=== PATIENT | male | born 1990 | race Caucasian/White ===

== ENCOUNTER 2016-06-22 18:06 | Emergency (ER) | payer OTHER ==
[~2016-06-22] VITALS: Ht 177.8 cm; Wt 68.0 kg
[~2016-06-22 18:06] MED LIST: CIMZ200K SC
[2016-06-22 18:10] VITALS: BP 129/77; PULSE 75; RESP 17; TEMP 98.3; O2SAT 95
--- NOTE | 2016-06-22 18:52 | PD ---
HPI Chief Complaint: Complaint Time Seen by Provider: 18:40 Travel History International Travel<30 days: No Contact w/Intl Traveler<30days: No Traveled to known affect area: No History of Present Illness HPI 26-year-old male with history of Crohn's disease presents for evaluation of right testicular pain. Symptoms started 3 weeks ago. Initially the pain was a dull aching pain which is constant. The pain is gradually progressing which prompted evaluation. There are no alleviating factors. Denies any testicular trauma. Denies any dysuria, urethral discharge, vomiting, fevers or chills. He is sexually active with one long-term partner, new sexual contacts. He has never had this problem before. No other complaints. PFSH Past Medical History Gastrointestinal Disorders: Yes (Crohns disease) Past Surgical History Tonsillectomy: Yes Social History Alcohol Use: Yes (OCCASSIONAL) Tobacco Use: No Substance Use: Yes Allergies-Medications (Allergen,Severity, Reaction): Coded Allergies: No Known Allergies (Unverified , 03/07/16) Reported Meds & Prescriptions Reported Meds & Active Scripts Active Cipro (Ciprofloxacin HCl) 500 Mg Tab 500 Mg PO BID 10 Days Reported Cimzia (Certolizumab Pegol) 200 Mg/Ml Kit 200 Mg SC BI-WEEKLY Review of Systems Except as stated in HPI: all other systems reviewed are Neg Physical Exam Narrative GENERAL: Well-developed well-nourished male in no acute distress SKIN: Warm and dry. HEAD: Atraumatic. Normocephalic. EYES: Pupils equal and round. No scleral icterus. No injection or drainage. CARDIOVASCULAR: Regular rate and rhythm. No murmur appreciated. RESPIRATORY: No accessory muscle use. Clear to auscultation. Breath sounds equal bilaterally. GASTROINTESTINAL: Abdomen soft, non-tender, nondistended. Hepatic and splenic margins not palpable. : Bilaterally the testicles are descended. There is mild tenderness to palpation to the right testicle. No tenderness to palpation to left testicle. No scrotal wall edema, erythema. There is no urethral discharge. No palpable masses. No palpable inguinal hernias. MUSCULOSKELETAL: No obvious deformities. NEUROLOGICAL: Awake and alert. No obvious cranial nerve deficits. Motor grossly within normal limits. Normal speech. PSYCHIATRIC: Appropriate mood and affect; insight and judgment normal. Data Data Last Documented VS Vital Signs Date Time Temp Pulse Resp B/P Pulse Ox O2 Delivery O2 Flow Rate FiO2 06/22/16 18:10 98.3 75 17 129/77 95 Orders Us Testicles W Doppler (06/22/16 18:40) Urinalysis - C+S If Indicated (06/22/16 18:47) Labs Laboratory Tests Test 06/22/16 19:00 Urine Color YELLOW Urine Turbidity CLEAR Urine pH 7.0 Urine Specific [place] 1.013 Urine Protein NEG mg/dL Urine Glucose (UA) NEG mg/dL Urine Ketones NEG mg/dL Urine Occult Blood NEG Urine Nitrite NEG Urine Bilirubin NEG Urine Urobilinogen LESS THAN 2.0 MG/DL Urine Leukocyte Esterase NEG Urine RBC 1 /hpf Urine WBC LESS THAN 1 /hpf Microscopic Urinalysis Comment CULT NOT INDICATED MDM Medical Decision Making Medical Screen Exam Complete: Yes Emergency Medical Condition: Yes Medical Record Reviewed: Yes Differential Diagnosis Epididymitis, orchitis, testicular torsion, hydrocele, varicocele, cystocele, spermatocele Narrative Course 26-year-old male with 3 weeks of right testicular pain. Examination is reassuring. Testicular ultrasound, urinalysis have been ordered. Urinalysis is normal. At the end of my shift the patient was signed out to oncoming provider pending testicular ultrasound results, likely disposition home if negative for torsion or significant mass. Likely outpatient follow-up with primary care physician. Scripts Ciprofloxacin (Cipro)500 Mg Mal115 Mg PO BID 10 Days Ref 0 Prov:Nigel Winkler MD 06/22/16 Eulogio Roach Jun 22, 2016 18:52 Eulogio Roach Jun 22, 2016 18:52
[2016-06-22 19:20] LABS: BLOOD, URINE NEG (NEG); GLUCOSE,URINE NEG (NEG); KETONE, URINE NEG (NEG); NITRITE,URINE NEG (NEG); URINE COLOR YELLOW (YELLW/STRAW)
[2016-06-22 19:23] LABS: COMMENT (UR) CULT NOT INDICATED; CULTURE IF INDICATED CULT NOT INDICATED
[2016-06-22] MEDS ORDERED: CIPR-9 PO ×2 (20:37→21:16)
--- NOTE | 2016-06-22 21:12 | RADRPT ---
EXAM DATE/TIME: 06/22/2016 19:46 [facility] COMPARISON: No previous studies available for comparison. INDICATIONS : Testicle pain. MEDICAL HISTORY : Crohn's disease. SURGICAL HISTORY : Tonsillectomy. ENCOUNTER: Initial ACUITY: 1 week PAIN SCORE: 7/10 LOCATION: Bilateral testicles. MEASUREMENTS: RIGHT TESTICLE: 5.0 x 3.4 x 2.6 cm FLOW: Yes LEFT TESTICLE: 5.2 x 3.5 x 2.7 cm FINDINGS: Small hydroceles present bilaterally. Positive testicular blood flow without evidence for torsion. No discrete testicular masses. No abnormal findings in the upper epididymis bilaterally. No varicocele. CONCLUSION: 1. Small bilateral hydroceles. Exam otherwise unremarkable. Pedro Murillo MD on June 22, 2016 at 21:09 Board Certified Radiologist. This report was verified electronically.
--- NOTE | 2016-06-22 21:16 | PD ---
Physical Exam Date Seen by Provider: Jun 22, 2016 Time Seen by Provider: 21:13 Narrative 26-year-old male that presents to the ED from 8 to the testicles. This referred to the previous provider. I was signed out this patient to me pending report of the ultrasound. Data Data Last Documented VS Vital Signs Date Time Temp Pulse Resp B/P Pulse Ox O2 Delivery O2 Flow Rate FiO2 06/22/16 18:10 98.3 75 17 129/77 95 Orders Us Testicles W Doppler (06/22/16 18:40) Urinalysis - C+S If Indicated (06/22/16 18:47) Labs Laboratory Tests Test 06/22/16 19:00 Urine Color YELLOW Urine Turbidity CLEAR Urine pH 7.0 Urine Specific [place] 1.013 Urine Protein NEG mg/dL Urine Glucose (UA) NEG mg/dL Urine Ketones NEG mg/dL Urine Occult Blood NEG Urine Nitrite NEG Urine Bilirubin NEG Urine Urobilinogen LESS THAN 2.0 MG/DL Urine Leukocyte Esterase NEG Urine RBC 1 /hpf Urine WBC LESS THAN 1 /hpf Microscopic Urinalysis Comment CULT NOT INDICATED MDM Medical Record Reviewed: Yes Supervised Visit with LEEANNE: No Interpretation(s) Ultrasound of the testicles show bilateral small hydroceles but no sign of other deformity or mass. Differential Diagnosis Mass versus cancer versus infection versus normal exam Narrative Course 26-year-old male that presents to the ED for evaluation of testicular pain. Patient was properly examined by the previous provider. Please refer to his note. Basically patient was signed out to me pending ultrasound results. Ultrasound result came back and was negative for acute disease other than for hydrocele. There is provider wanted patient to be sent home with Cipro to cover for acute infection. Patient was told results. Patient was reassured. Recommendation is for follow-up with urologist. See ED for any worsening symptoms. Diagnosis Primary Impression: Hydrocele in adult Referrals: Raul Das MD Patient Instructions: General Instructions Additional Instruction: Take medication as prescribed. Follow with PCP. Follow with urologist. See ED for any worsening symptoms.-year-old percent was negative for acute mass other than for hydrocele which is a benign collection of fluid in the testicles. Med/Other Pt SpecificInfo: Prescription(s) given Scripts Ciprofloxacin (Cipro)500 Mg [id number] Mg PO BID 10 Days Ref 0 Prov:Nigel Winkler MD 06/22/16 Disposition: 01 DISCHARGE HOME Condition: Collin Stein Jun 22, 2016 21:16
[2016-07-18] MEDS ORDERED: HYDR-3288 PO (11:56)
== END 2016-06-22 21:28 | disposition home or self-care (01) ==
LOC: NETRI 18:06
DX: N43.3 Hydrocele, unspecified (principal); K50.90 Crohn's disease, unspecified, without complications
CPT/HCPCS: 76870; 81001; 93975

== ENCOUNTER 2016-07-12 03:49 | Emergency (ER) | payer OTHER ==
[~2016-07-12] VITALS: Ht 177.8 cm; Wt 68.0 kg
[~2016-07-12 03:49] MED LIST changes: +CIPR-9 PO
[2016-07-12 03:51] VITALS: BP 130/84; PULSE 61; RESP 15; TEMP 97.6; O2SAT 100
[2016-07-12] MEDS ORDERED: IBUPROFEN 800 MG TAB PO ONE (05:15)
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
[2016-07-12] MEDS ORDERED: ONDANSETRON HCL 4 MG/2 ML VIAL IV PUSH ONE (06:00)
[2016-07-12] MEDS ORDERED: ceFAZolin 2 GM PREMIX 50 ML IV ONE (06:00)
[2016-07-12] MEDS ORDERED: MORPHINE SULFATE 4 MG/ML INJ IV PUSH ONE (06:00)
[2016-07-12] MEDS ORDERED: PERC5TAB12 PO (06:04)
[2016-07-12] MEDS ORDERED: CEPH-460 PO (06:05)
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
[2016-07-18] MEDS ORDERED: HYDR-3288 PO (11:56)
== END 2016-07-12 07:01 | disposition home or self-care (01) ==
LOC: NEPB 03:49
DX: S62.316B Displaced fracture of base of fifth metacarpal bone, right hand, initial encounter for open fracture (principal); S62.334A Displaced fracture of neck of fourth metacarpal bone, right hand, initial encounter for closed fracture; W22.8XXA Striking against or struck by other objects, initial encounter; Y93.89 Activity, other specified; Y92.9 Unspecified place or not applicable
CPT/HCPCS: 29125; 73130; 96374; 96375; 99283; J0690; J2270; J2405

== ENCOUNTER → 2016-07-18 | Day surgery (SDC) | payer OTHER ==
[~2016-07-18] VITALS: Ht 177.8 cm; Wt 70.5 kg
[~2016-07-18] MED LIST changes: +ACETAMINOPHEN/HYDROcodone 325 MG/5 MG TAB ONE; +BUPIVACAINE HCL PF 0.5% 30 ML VIAL INFIL ONE; +CEPH-460 PO; -CIMZ200K SC; -CIPR-9 PO; +DEXAMETHASONE SOD PHOS 4 MG/ML VIAL ONE; +FAMOTIDINE 20 MG/2 ML VIAL ONE; +HYDR-3288 PO; +LACTATED RINGER'S 1000 ML INJ 1,000 ML ONE; +LIDOCAINE HCL 2% 50 ML VIAL INFIL ONE; +MIDAZOLAM HCL 2 MG/2 ML VIAL ONE; +NEOMYCIN/POLYMYXIN 1 ML G.U. IRRIGANT IR ONE; +ONDANSETRON HCL 4 MG/2 ML VIAL IV PUSH ONE; +PERC5TAB12 PO; +PROPOFOL 200 MG/20 ML AMP IV ONE; +SODIUM CHLORIDE 0.9% INJ 50 ML ONE; +ceFAZolin INJ 1,000 MG VIAL ONE; +ePHEDrine/NS 25 MG/5 ML SYR IV ONE; +fentaNYL CITRATE 250 MCG/5 ML AMP ONE
[2016-07-18 09:53] VITALS: BP 111/68; PULSE 61; RESP 16; TEMP 98.1; O2SAT 98
[2016-07-18 10:07] LABS: HEMATOCRIT 42.3 % (39.0-51.0); MEAN CELL VOLUME 87.7 FL (80.0-100.0); MEAN CORPUSCULAR HEMOGLOBIN 28.6 PG (27.0-34.0); MEAN CORPUSCULAR HGB CONC 32.7 % (32.0-36.0); PLATELET COUNT 334 TH/MM3 (150-450); RED BLOOD COUNT 4.82 MIL/MM3 (4.50-5.90); RED CELL DISTRIBUTION WIDTH 12.2 % (11.6-17.2); REVIEW FLAG FINAL; WHITE BLOOD COUNT 7.9 TH/MM3 (4.0-11.0)
[2016-07-18 13:15] VITALS: BP 115/71; PULSE 68; RESP 16; TEMP 98.1; O2SAT 99
--- NOTE | 2016-07-19 12:11 | MP ---
cc: ELIEL RAPHAEL III, M.D. DATE OF OPERATION 07/18/2016 PREOPERATIVE DIAGNOSIS Right fourth and fifth metacarpal fractures. PROCEDURE 1. Closed reduction and percutaneous pinning right fourth and fifth metacarpals with manipulation. 2. Use of image intensifier. SURGEON Eliel Raphael III, MD PROCEDURE The patient was brought to the operating room and placed supine on the operating room table. After the correct site and side of the surgery were verified by members of each team in the room multiple times including the patient and myself and after adequate preoperative markings and preoperative written consent were verified to everyone's satisfaction and after adequate general anesthesia had been achieved, the right upper extremity was prepped and draped in the traditional sterile surgical fashion. A 50/50 mixture of 2% plain lidocaine and 0.5% plain Marcaine was infiltrated in the skin and subcutaneous tissue down to the fractures in the right fourth and fifth metacarpals. Using the mini C-arm, closed reduction was obtained and, using two separate 0.045-cm K-wires at differing angles, they were advanced in a retrograde fashion, securing the reduction nearly anatomically. They were tailored to length, cut, bent. Jurgan's balls were applied. Passive range of motion examination was limited but it was performed and revealed no evidence of any mal-angulation or malrotation. The hand and arm were thoroughly cleansed and dried. Betadine and Xeroform was applied around the pin sites, followed by a bulky, well-padded, well molded volar immobilizing whole hand splint, short-arm length. The patient was awakened from anesthesia and transported to the Post-Anesthesia Care Unit awake and in stable at the end of the case. The sponge, needle and instrument counts were correct at the case as reported by the nurses in the room. MD MICHAEL Adler III/CYNTHIA /11:54 AM /12:02 PM
== END | disposition home or self-care (01) ==
LOC: PHSDC 09:22
PROVIDERS: ATTEND Orthopaedic Surgery Hand Surgery
DX: S62.334A Displaced fracture of neck of fourth metacarpal bone, right hand, initial encounter for closed fracture (principal); S62.306A Unspecified fracture of fifth metacarpal bone, right hand, initial encounter for closed fracture; W22.8XXA Striking against or struck by other objects, initial encounter
CPT/HCPCS: 01820; 26608; 36415; 76000; 85027; J0690; J1100; J2250; J2405; J3010; J7120

== ENCOUNTER 2016-11-17 00:51 | Emergency (ER) | payer OTHER ==
[~2016-11-17] VITALS: Ht 177.8 cm; Wt 66.0 kg
[2016-11-17 00:54] VITALS: BP 133/69; PULSE 98; RESP 16; TEMP 98.4; O2SAT 100
[2016-11-17] MEDS ORDERED: TETANUS/DIPHTHERIA TOXOID ADULT 0.5 ML VIAL IM ONE (01:15)
--- NOTE | 2016-11-17 01:55 | PD ---
HPI Chief Complaint: Laceration/Skin Injury Time Seen by Provider: 01:00 Travel History International Travel<30 days: No Contact w/Intl Traveler<30days: No Traveled to known affect area: No History of Present Illness HPI Patient comes in complaining of a avulsion to his right index finger that occurred around 1600 yesterday. Patient states he was slicing nelson to make de jesus when he caused the injury. Patient reports his last tetanus shot was approximately 4 years ago. Patient denies clean it, he states he just applied a dressing. Patient states pain is throbbing throughout the night and decided to come to the emergency department. Denies anything making it better. Denies any radiation of the pain. PFSH Past Medical History Cancer: No Cardiovascular Problems: No Diabetes: No Diminished Hearing: No Endocrine: No Gastrointestinal Disorders: Yes (Crohns disease) Genitourinary: No Hepatitis: No Hiatal Hernia: No Immune Disorder: No Musculoskeletal: No Neurologic: No Reproductive: No Respiratory: No Immunizations Current: Yes Thyroid Disease: No Tetanus Vaccination: > 5 Years Influenza Vaccination: No Past Surgical History Abdominal Surgery: No AICD: No Cardiac Surgery: No Ear Surgery: No Endocrine Surgery: No Eye Surgery: No Genitourinary Surgery: No Gynecologic Surgery: No Joint Replacement: No Oral Surgery: Yes (ADNOIDS) Pacemaker: No Thoracic Surgery: No Tonsillectomy: Yes Other Surgery: Yes Social History Alcohol Use: Yes (OCCASSIONAL) Tobacco Use: No Substance Use: Yes (MARIJUANA) Allergies-Medications (Allergen,Severity, Reaction): Coded Allergies: No Known Allergies (Unverified , 11/17/16) Reported Meds & Prescriptions Reported Meds & Active Scripts Active No Active Prescriptions or Reported Medications Review of Systems Except as stated in HPI: all other systems reviewed are Neg Physical Exam Narrative GENERAL: Well-developed, well nourished, in no acute distress, and non-ill appearing. SKIN: Skin avulsion noted over the palmar surface distal aspect right index finger that is bleeding. His neurovascular intact distally. Full range of motion. Capillary refill less than 2 seconds. HEAD: Atraumatic. Normocephalic. EYES: Pupils equal and round. EOMI. No scleral icterus. No injection or drainage. ENT: No nasal bleeding or discharge. Mucous membranes pink and moist. NECK: Trachea midline. Supple. No nuclear rigidity. CARDIOVASCULAR: Regular rate and rhythm. No murmur appreciated. RESPIRATORY: No accessory muscle use. No respiratory distress. MUSCULOSKELETAL: No obvious deformities. No clubbing. No cyanosis. No edema. Full range of motion. NEUROLOGICAL: Awake and alert. No obvious cranial nerve deficits. Motor grossly within normal limits. Normal speech. PSYCHIATRIC: Appropriate mood and affect; insight and judgment normal. Data Data Last Documented VS Vital Signs Date Time Temp Pulse Resp B/P Pulse Ox O2 Delivery O2 Flow Rate FiO2 11/17/16 00:54 98.4 98 16 133/69 100 Room Air Orders Tetanus/Diphtheria Tox Adult (Tetanus/Di (11/17/16 01:15) MDM Medical Decision Making Medical Screen Exam Complete: Yes Emergency Medical Condition: Yes Differential Diagnosis Laceration, abrasion, contusion, avulsion, other Narrative Course There was no evidence of neurovascular injury as well. The patients wound were cleaned and dressed. The patient was given signs and symptom warnings for infection, such as increasing pain, redness, swelling, associated heat, pus or fever. The patient was given instructions for timely follow up. The patient agreed with plan of care. Patient in no obvious distress upon re-evaluation. Any questions/concerns in reference to patient diagnosis/condition discussed and clarified prior to patient's discharge. Reinforced sheer importance of close follow up with patient 's primary physician or primary care clinic. Instructed patient to return to ED immediately, if symptoms return/worsen. Pt showed understanding of above instructions. Further instructions and recommendations were detailed in discharge paperwork. Pt ambulated without difficulty out of ED at discharge. Procedures Procedure Narrative REPAIR: Verbal consent was obtained. The area of the laceration was cleaned and prepped. The wound was copiously irrigated and explored without evidence of foreign body, bony involvement, ligament injury, tendon injury, or neurovascular injury. The wound was covered using Surgicel and sterile dressing was applied. The patient was advised to keep the affected area as clean and dry as possible using soap and water. There were no complications. Patient tolerated the procedure well. Diagnosis Primary Impression: Avulsion of skin of finger without complication Qualified Code: S61.209A - Avulsion of skin of finger without complication, initial encounter Patient Instructions: General Instructions, Skin Avulsion (ED) Additional Instructions: Follow-up with your primary care physician in 2-3 days for evaluation. Use over -the-counter Tylenol and/or ibuprofen as needed for pain. Follow instructions on the packaging. Elevate finger to decrease pain and throbbing. Keep wound dry and clean as possible using soap and water. Do not soak or submerge wound. Return to the emergency department if symptoms get worse. Scripts No Active Prescriptions or Reported Meds Disposition: 01 DISCHARGE HOME Condition: Stable Brain Salcido Nov 17, 2016 01:55
== END 2016-11-17 02:33 | disposition home or self-care (01) ==
LOC: NEPD 00:51
DX: S61.210A Laceration without foreign body of right index finger without damage to nail, initial encounter (principal); W27.4XXA Contact with kitchen utensil, initial encounter; K50.90 Crohn's disease, unspecified, without complications
CPT/HCPCS: 12001